=== PATIENT | male | born 1950 | race Caucasian/White ===

== ENCOUNTER 2025-03-23 16:43 | Inpatient (IN) | payer MEDICARE ==
[~2025-03-23 16:43] MED LIST: Iopamidol-370 76% 500 ML MDV (1 ML CHARGE) ONE
[2025-03-23 17:35] LABS: #Basophils 0.05 10x3/uL (0.0-0.2); #Eosinophils 0.05 10x3/uL (0.0-0.7); #Monocytes 0.61 10x3/uL (0.11-0.59); #Neutrophils 5.94 10x3/uL (1.40-6.50); %Basophils 0.6 % (0.0-1.0); %Eosinophils 0.6 % (0.0-10.0); %Lymphocytes 23.2 % (21.0-51.0); %Neutrophils 68.4 % (42.0-75.0); Hematocrit 43.2 % (42.0-52.0); Mean Corpuscular HGB CONC 34.7 g/dL (32.0-36.0); Mean Corpuscular Hemoglobin 30.4 pg (27.0-31.0); Mean Corpuscular Volume 87.4 fL (78.0-98.0); Mean Platelet Volume 10.1 fL (7.4-10.4); Platelet Count 147 10x3/uL (130-400); RBC Distribution Width 13.3 % (11.5-14.5); Red Blood Cell (RBC) Count 4.94 mill/uL (4.70-6.10); White Blood Cell (WBC) Count 8.69 10x3/uL (4.8-10.8)
[2025-03-23] MEDS ORDERED: Ondansetron PF 4 MG/2 ML Vial ONE (17:43)
[2025-03-23] MEDS ORDERED: Acetaminophen 500 MG TAB ONE (17:43)
[2025-03-23 18:01] LABS: ALT (SGPT) 38 U/L (Less than 45); AST (SGOT) 38 U/L (11-34); Albumin 4.8 g/dL (3.1-4.5); Alkaline Phosphatase 78 U/L (40-110); Anion Gap 16 mmol/L (10-20); BUN (Urea Nitrogen) 25 mg/dL (8.4-25.7); Bilirubin, Total 0.9 mg/dL (0.3-1.2); Calc. Creatinine Clearance 0 mL/min (70-130); Calcium 9.7 mg/dL (7.8-10.44); Carbon Dioxide 24 mmol/L (23-31); Chloride 102 mmol/L (98-107); Estimated GFR 61; Globulin 2.7 g/dL (2.4-3.5); Glucose 127 mg/dL (83-110); Lipase 42 U/L (8-78); Potassium 3.7 mmol/L (3.5-5.1); Protein, Total 7.5 g/dL (5.8-8.1); Sodium 138 mmol/L (136-145)
[2025-03-23 18:05] LABS: Troponin I Less than 0.010 ng/mL (< 0.028)
[2025-03-23] MEDS ORDERED: Famotidine/PF 20 mg/2ml Vial ONE (19:45)
[2025-03-23 21:01] LABS: Troponin I Less than 0.010 ng/mL (< 0.028)
[2025-03-23] MEDS ORDERED: Enoxaparin 100 MG (1 mL) SYRINGE ONE (22:16)
[2025-03-23] MEDS ORDERED: traMADol HCl 50 MG TAB PO PRN (22:34)
[2025-03-23] MEDS ORDERED: Acetaminophen 325 MG TAB PO PRN (22:34)
[2025-03-23] MEDS ORDERED: Ondansetron PF 4 MG/2 ML Vial IVP PRN (22:34)
[2025-03-23] MEDS ORDERED: Nitroglycerin 0.4 MG TAB (25 Tab Bottle) SL PRN (22:38)
[2025-03-23 23:46] VITALS: BMI 31.4
[2025-03-24] MEDS ORDERED: Morphine 2 MG/ML VIAL SLOW IVP PRN (00:03)
[2025-03-24 00:35] LABS: Troponin I Less than 0.010 ng/mL (< 0.028)
[2025-03-24 04:17] LABS: #Basophils 0.04 10x3/uL (0.0-0.2); #Eosinophils 0.13 10x3/uL (0.0-0.7); #Monocytes 0.73 10x3/uL (0.11-0.59); #Neutrophils 3.56 10x3/uL (1.40-6.50); %Basophils 0.5 % (0.0-1.0); %Eosinophils 1.7 % (0.0-10.0); %Lymphocytes 42.2 % (21.0-51.0); %Monocytes 9.4 % (0.0-10.0); %Neutrophils 45.8 % (42.0-75.0); Hematocrit 40.3 % (42.0-52.0); Hemoglobin 13.8 g/dL (14.0-18.0); Mean Corpuscular HGB CONC 34.2 g/dL (32.0-36.0); Mean Corpuscular Hemoglobin 30.5 pg (27.0-31.0); Mean Platelet Volume 10.5 fL (7.4-10.4); Platelet Count 137 10x3/uL (130-400); RBC Distribution Width 13.6 % (11.5-14.5); Red Blood Cell (RBC) Count 4.53 mill/uL (4.70-6.10); White Blood Cell (WBC) Count 7.77 10x3/uL (4.8-10.8)
[2025-03-24 04:39] LABS: Anion Gap 11 mmol/L (10-20); BUN (Urea Nitrogen) 22 mg/dL (8.4-25.7); Calc. Creatinine Clearance 71 mL/min (70-130); Calcium 9.1 mg/dL (7.8-10.44); Carbon Dioxide 27 mmol/L (23-31); Chloride 104 mmol/L (98-107); Estimated GFR 63; Glucose 108 mg/dL (83-110); Potassium 3.6 mmol/L (3.5-5.1); Sodium 138 mmol/L (136-145)
[2025-03-24] MEDS: Aspirin 81 mg Enteric Coated Tablet PO SCH (08:20)
[2025-03-24] MEDS: Famotidine 20 MG TAB PO SCH (08:21)
[2025-03-24] MEDS: Enoxaparin 100 MG (1 mL) SYRINGE SC SCH (11:23)
[2025-03-24] MEDS: guaiFENesin/DM ER PO SCH ×2 (14:35→21:43)
[2025-03-24] MEDS: CO Q-10 CAPSULE 100 MG PO SCH (21:39)
[2025-03-24] MEDS: Atorvastatin Calcium 40 MG TAB PO SCH (21:39)
[2025-03-24] MEDS: Losartan 25 MG TAB PO SCH (21:40)
[2025-03-24] MEDS: Folic Acid/Vit B Comp W-C PO SCH (21:40)
[2025-03-24] MEDS: Cholecalciferol 1,000 UNITS (25 MCG) TAB PO SCH (21:40)
[2025-03-24] MEDS: Multivit, Therapeutic 1 TAB PO SCH (21:40)
[2025-03-24] MEDS: Melatonin 3 MG TAB PO PRN (21:41)
[2025-03-25] MEDS: Ezetimibe 10 MG TAB PO SCH (08:34)
[2025-03-25 16:06] VITALS: BP 145/83; TEMP 98.7
== END 2025-03-25 16:40 | disposition home or self-care (01) | DRG 313 ==
LOC: ERS 16:43 → 2SE 21:51 → OBSVTOIN 03-24 19:06
PROVIDERS: ADMIT Internal Medicine; ATTEND Hospitalist
DX: R07.9 Chest pain, unspecified (principal); I25.10 Atherosclerotic heart disease of native coronary artery without angina pectoris; E78.5 Hyperlipidemia, unspecified; N40.0 Benign prostatic hyperplasia without lower urinary tract symptoms; I10 Essential (primary) hypertension; Z98.890 Other specified postprocedural states; Z95.5 Presence of coronary angioplasty implant and graft; Z82.49 Family history of ischemic heart disease and other diseases of the circulatory system; Z95.3 Presence of xenogenic heart valve; Z79.01 Long term (current) use of anticoagulants; Z79.899 Other long term (current) drug therapy; Z79.84 Long term (current) use of oral hypoglycemic drugs
CPT/HCPCS: 36415; 71045; 71275; 74174; 78452; 80048; 80053; 83690; 84484; 85025; 93005; 93017; 94760; 96372; 96374; 96375; A9502; G0378; J1650; J2405; J3490; Q9967